=== PATIENT | male | born 1995 | race Caucasian/White ===

== ENCOUNTER 2023-06-03 13:42 | Emergency (ER) | payer SELFPAY ==
[2023-06-03] MEDS ORDERED: Ketorolac Tromethamine 30 MG/ML VIAL ONE (13:54)
== END 2023-06-03 14:56 | disposition home or self-care (01) ==
LOC: ERS 13:42
DX: S60.222A Contusion of left hand, initial encounter (principal); W22.01XA Walked into wall, initial encounter; Y93.89 Activity, other specified
CPT/HCPCS: 96372; J1885